=== PATIENT | male | born 1995 | race Hispanic/Latino ===

== ENCOUNTER 2018-06-22 20:32 | Emergency (ER) | payer OTHER ==
[2018-06-22 20:42] VITALS: BP 141/79; PULSE 83; TEMP 97.8; O2SAT 99
[2018-06-22] MEDS ORDERED: Bacitracin 500 Units/gm Oint Foilpak UD ONE (21:41)
--- NOTE | 2018-06-22 21:46 | C.PDOC ---
History Of Present Illness 23 year old male presents to the ER after sustaining a laceration to the right thumb while cleaning a knife [employer]. Patient states he could not stop the bleeding which concerned him and prompted visit. Denies weakness or numbness. Tetanus status is unknown. Time Seen by Provider: 06/22/18 20:51 Chief Complaint (Nursing): Abnormal Skin Integrity History Per: Patient History/Exam Limitations: no limitations Onset/Duration Of Symptoms: Hrs Current Symptoms Are (Timing): Still Present Location Of Injury: Right: Hand (Thumb) Quality Of Symptoms: Other (Laceration) Recent travel outside of the [place]: No Past Medical History Reviewed: Historical Data, Nursing Documentation, Vital Signs Vital Signs: Last Vital Signs Temp 97.8 F 06/22/18 20:40 Pulse 83 06/22/18 20:40 Resp 16 06/22/18 20:40 BP 141/79 06/22/18 20:40 Pulse Ox 99 06/22/18 20:40 Family History: States: Unknown Family Hx - Social History Hx Alcohol Use: Yes Hx Substance Use: No - Immunization History Hx Tetanus Toxoid Vaccination: No Hx Influenza Vaccination: No Hx Pneumococcal Vaccination: No Review Of Systems Musculoskeletal: Positive for: Other (Right thumb laceration) Neurological: Negative for: Weakness, Numbness Physical Exam - Physical Exam Appears: Non-toxic Skin: Warm, Dry Head: Atraumatic, Normacephalic Eye(s): bilateral: Normal Inspection Extremity: Normal ROM, Capillary Refill (<2 seconds), No Deformity, No Swelling, Other (2cm superficial laceration to IP joint of right thumb, no apparent tendon laceration. ROM of right thumb intact.) Extremity: Bilateral: Normal Color And Temperature Pulses: Left Radial: Normal, Right Radial: Normal Neurological/Psych: Oriented x3, Normal Speech, Normal Motor, Normal Sensation ED Course And Treatment O2 Sat by Pulse Oximetry: 99 (Room air) Pulse Ox Interpretation: Normal Progress Note: Patient tolerated laceration repair without any difficulty. Will discharge home with proper wound care instructions and advised to follow up with hand specialist. Laceration - Laceration Repair Right Thumb Wound Length (In cm): 2 Description Of Wound: Linear Wound Cleansed With: Sterile Saline Anesthesia: Lidocaine 1% (Digital block) Wound Examination: Irrigated With Saline, No FB With Wound Exploration, No Tendon Injury With Wound Exploration Wound Closure: Suture (Three) Suture Technique And Material Used: Nylon (4-0) Wound Complexity: Simple Disposition Counseled Patient/Family Regarding: Diagnosis, Need For Followup, Rx Given - Disposition Referrals: [facility] [Outside] Disposition: HOME/ ROUTINE Disposition Time: 21:44 Condition: STABLE Additional Instructions: Follow wound care instructions Keep wound clean and dry as much as possible Suture removal in 8-10 days Follow up with Hand doctor for an evaluation Return to ER if worse Instructions: Laceration Repair With Stitches (DC) Forms: Njini (French) - Clinical Impression Clinical Impression: Laceration of thumb, right - PA / HEALTHCARE MARKETER / Resident Statement MD/DO has reviewed & agrees with the documentation as recorded. - Scribe Statement The provider has reviewed the documentation as recorded by the Scribgage Kaplan All medical record entries made by the Scribgage were at my direction and personally dictated by me. I have reviewed the chart and agree that the record accurately reflects my personal performance of the history, physical exam, medical decision making, and the department course for this patient. I have also personally directed, reviewed, and agree with the discharge instructions and disposition.
[2018-06-22 21:52] VITALS: RESP 20
== END 2018-06-22 21:52 | disposition home or self-care (01) ==
LOC: C.ER 20:32
DX: S61.011A Laceration without foreign body of right thumb without damage to nail, initial encounter (principal); W26.0XXA Contact with knife, initial encounter; Y93.G1 Activity, food preparation and clean up